=== PATIENT | male | born 1990 | race Caucasian/White ===

== ENCOUNTER 2021-08-27 18:46 | Observation (INO) ==
[2021-08-27] MEDS ORDERED: Ondansetron 4 MG/2 ML VIAL IVP PRN (20:59)
[2021-08-27] MEDS ORDERED: Acetaminophen 325 MG TABLET PO PRN (20:59)
[2021-08-27] MEDS ORDERED: Naloxone 0.4 MG/ML INJ IVP PRN (20:59)
[2021-08-27] MEDS ORDERED: Melatonin 3 MG TABLET PO PRN ×2 (20:59→21:06)
[2021-08-27] MEDS ORDERED: *HR* LORazepam 2 MG/ML VIAL IVP PRN ×3 (21:01)
[2021-08-27] MEDS: Vitamin B Complex/Vit C/Vit E 1 EACH TABLET PO SCH (21:23)
[2021-08-27] MEDS: Thiamine (B-1) 100 MG TABLET PO SCH (21:23)
[2021-08-27] MEDS: Folic Acid 1 MG TABLET PO SCH (21:24)
[2021-08-27] MEDS: 0.9 % Sodium Chloride 1,000 ML IVC SCH (21:24)
[2021-08-28 01:34] LABS: Basophils # 0.1 K/mcL (0.0-0.2); Basophils % 0.7 %; Eosinophils # 0.1 K/mcL (0.0-0.6); Eosinophils % 1.3 %; Hematocrit 38.4 % (37.5-50.1); Immature Granulocytes % 0.3 % (0-4); Lymphocytes # 3.6 K/mcL (0.6-4.6); Lymphocytes % 47.9 %; Mean Corpuscular HGB Conc 31.3 g/dL (31.6-35.5); Mean Corpuscular Hemoglobin 25.5 pg (28.0-33.3); Mean Corpuscular Volume 81.7 fL (83.0-100.0); Monocytes # 0.7 K/mcL (0.0-1.3); Monocytes % 8.8 %; Neutrophils # 3.1 K/mcL (1.6-8.9); Platelet Count 260 K/mcL (140-400); Red Cell Distribution Width 15.9 % (11.5-14.5); White Blood Count 7.5 K/mcL (4.3-11.1)
[2021-08-28 01:55] LABS: Alanine Aminotransferase 8 Units/L (7-52); Albumin/Globulin Ratio 2.4 (1.1-2.2); Alkaline Phosphatase 74 Units/L (34-104); Aspartate Amino Transferase 15 Units/L (13-39); BUN/Creatinine Ratio 10 (6-26); Bilirubin,Total 0.3 mg/dL (0.3-1.0); Blood Urea Nitrogen 12 mg/dL (6-20); Calcium 8.5 mg/dL (8.6-10.3); Carbon Dioxide 22 mEq/L (23-29); Chloride 113 mEq/L (98-107); Globulin 1.7 g/dL (2.4-3.5); Glucose 110 mg/dL (70-105); Magnesium 2.2 mg/dL (1.6-2.6); Osmolality,Calculated 286 (280-300); Phosphorous 3.4 mg/dL (2.7-4.5); Potassium 3.5 mEq/L (3.5-5.1); Sodium 138 mEq/L (136-145); Total Protein 5.7 g/dL (6.4-8.9); eGFR For African Americans > 60 (> 60); eGFR For Non-African Americans > 60 (> 60)
[2021-08-28 01:56] LABS: Troponin I < 0.03 ng/mL (< 0.04)
[2021-08-28 03:01] LABS: Estimated Average Glucose 154 mg/dl
[2021-08-28] MEDS: 0.9 % Sodium Chloride 1,000 ML IVC SCH (05:33)
[2021-08-28 07:12] VITALS: O2SAT 97
[2021-08-28] MEDS ORDERED: Dextrose 4 GM Chewable Tablets PO PRN ×2 (07:57)
[2021-08-28] MEDS ORDERED: D5% in Water 1,000 ML IVC PRN (07:57)
[2021-08-28] MEDS ORDERED: *HR* Dextrose 50 % in Water (Syg) 50 ML SYRINGE IVP PRN (07:57)
[2021-08-28] MEDS: Vitamin B Complex/Vit C/Vit E 1 EACH TABLET PO SCH (09:00)
[2021-08-28] MEDS: Folic Acid 1 MG TABLET PO SCH (09:00)
[2021-08-28] MEDS: Thiamine (B-1) 100 MG TABLET PO SCH (09:00)
[2021-08-28 11:18] VITALS: BP 132/75; PULSE 88; TEMP 97.9
[2021-08-28] MEDS ORDERED: Insulin LISPRO 300 UNITS/3 ML VIAL SUBQ SCH ×2 (11:30→21:00)
== END 2021-08-28 11:54 ==
LOC: 3BNU → SUATTDRO 19:37
PROVIDERS: ADMIT Internal Medicine; ATTEND Internal Medicine